=== PATIENT | male | born 1965 | race Caucasian/White ===

== ENCOUNTER 2016-07-04 08:48 | Inpatient (IN) ==
[2016-07-04] MEDS ORDERED: ALUM/MAG/SIMETH/LIDO VISC 1:1 30 ML BOTTLE PO STA (09:31)
[2016-07-04] MEDS ORDERED: METOPROLOL TARTRATE 5 MG/5 ML VIAL IV STA (09:31)
[2016-07-04] MEDS ORDERED: ONDANSETRON 4 MG/2 ML VIAL IV STA (09:31)
[2016-07-04] MEDS ORDERED: ASPIRIN 325 MG TABLET PO STA (09:31)
[2016-07-04] MEDS ORDERED: MORPHINE 2 MG/1 ML SYRINGE IV STA (09:31)
[2016-07-04] MEDS ORDERED: NITROGLYCERIN 2% OINT 1 INCH/GM PACK TOP STA (09:31)
[2016-07-04 09:41] LABS: Basophils % 0.7 % (0.0-0.8); Eosinophils # 0.2 10*3/uL (0.0-0.87); Eosinophils % 3.3 % (0.00-10.9); Hematocrit 49.8 VOL% (42.0-52.0); Hemoglobin 16.9 GM/DL (14.0-18.0); Immature Granulocytes % 0.2 %; Immature Granulocytes Absolute 0.01 #; Lymphocytes # 1.9 10*3/uL (1.4-4.0); Lymphocytes % 35.2 % (21.2-54.2); Mean Corpuscular HGB Conc 33.9 GM/DL (32-36); Mean Corpuscular Hemoglobin 33 PG (27-34); Mean Corpuscular Volume 97.5 FL (87-102); Mean Platelet Volume 9.7 FL (9.6-12.0); Monocytes # 0.5 10*3/uL (0.11-0.8); Monocytes % 8.5 % (1.7-12.7); Neutrophils # 2.9 10*3/uL (1.4-7.4); Neutrophils % 52.1 % (38.7-73.9); Platelet Count 171 T/CUMM (130-400); Red Blood Count 5.11 MC/CUMM (3.8-5.5); Red Cell Distribution Width 11.7 % (9.3-17.3); White Blood Count 5.5 T/CUMM (4-12)
--- NOTE | 2016-07-04 09:44 | Emergency Department Note ---
Benedict Larry Meredith, am scribing for, and in the presence of, Terry Mensah MD 09:26. Rodrick Larry Charles R, MD, personally performed the services described in this documentation, ascribed by Mattie Mcmullen in my presence, and it is both accurate and complete 944 . 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 At it's worst, his pain was an 8-9/10. He confirms associated lightheadedness and shortness of breath but denies any nausea or cough. Pt took 325mg ASA prior. His last stress test was over 2 years ago. He is a current everyday smoker. Onset (ago): hour(s) Severity scale (1-10): 8 Allergies/Adverse Reactions: Allergies Allergy/AdvReac Type Severity Reaction Status Date / Time No Known Allergies Allergy Unverified 07/04/16 08:51 Home Medications: Home Medications Medication Instructions Recorded Confirmed Type Omeprazole 20 mg PO QAM 07/04/16 07/04/16 History Review of System - Review of System 12 point system: reviewed and no additional remarkable complaints except as stated - Review of System Constitutional: Present: as per HPI, other (lightheadedness) Respiratory: Present: as per HPI, other (SOB). Absent: cough Cardiovascular: Present: as per HPI, chest pain Gastrointestinal: Present: as per HPI. Absent: nausea Musculoskeletal: Present: as per HPI, arm pain (left arm pain radiating from chest) Medical,Surgical,& Family Hx - Medical History Cardio: No history of: CHF - Surgical History Neurologic Surgeries: Patient denies: Neurologic Surgery - Family History Family History: Reports;: Family Heart Disease (father had an KS at 60) - Social History Smoking Status: Current every day smoker Frequency of Alcohol Use: None Type of Drug Use: None Exam Vital Signs: Vital Signs Temperature 98.5 F 07/04/16 08:51 Pulse Rate 70 07/04/16 08:51 Respiratory Rate 18 07/04/16 09:37 Blood Pressure 185/91 07/04/16 08:51 O2 Sat by Pulse Oximetry 96 07/04/16 08:51 - General General appearance: alert, in no apparent distress - Head Head exam: Present: atraumatic, normocephalic - Eye Eye exam: Present: normal appearance, PERRL, EOMI - ENT ENT exam: Present: mucous membranes moist. Absent: normal external ear exam - Neck Neck exam: Present: full ROM, trachea midline. Absent: tenderness, meningismus , lymphadenopathy, thyromegaly - Chest Chest inspection: Present: symmetric chest wall rise. Absent: tenderness, rash - Respiratory Respiratory exam: Present: normal lung sounds bilaterally. Absent: respiratory distress - Cardiovascular Cardiovascular exam: Present: regular rate, normal rhythm, normal heart sounds. Absent: murmur, rubs, gallop - Abdominal Exam Abdominal exam: Present: soft, normal bowel sounds. Absent: distention, tenderness - Extremities Exam Extremities exam: Present: full ROM, normal capillary refill. Absent: tenderness, pedal edema, calf tenderness - Back Exam Back exam: Present: full ROM. Absent: tenderness - Neurological Exam Neurological exam: Present: alert, oriented X3, CN II-XII intact. Absent: motor sensory deficit - Psychiatric Psychiatric exam: Present: normal affect, normal mood - Skin Skin exam: Present: warm, dry, intact, normal color Course - Consultations Consultation #1: Dr. Aurelio Somers will admit patient Time: 10:11 Results - Labs CBC & BMP: 07/04/16 09:16 07/04/16 09:16 Lab Results: I have reviewed the patients labs Labs: Laboratory Tests 07/04/16 07/04/16 09:16 09:16 WBC 5.5 RBC 5.11 Hgb 16.9 Hct 49.8 Plt Count 171 INR 1.0 PT Patient/Control Mix 11.0 D-Dimer, Quantitative <= 0.5 Laboratory Tests 07/04/16 07/04/16 09:16 09:16 Sodium 144 Potassium 3.7 Chloride 107 Carbon Dioxide 26 BUN 8 Creatinine 1.20 Glucose 127 H Calcium 8.4 L Troponin I < 0.015 Albumin/Globulin Ratio 1.0 L Critical Care Time Critical Care Time: Yes Total Critical Care Time: 60 Disposition Clinical Impression: Chest pain, Hypertensive urgency Case discussed with: patient, patient's family Disposition: Still a Patient Condition: Guarded Time of Disposition: 10:17
[2016-07-04 09:49] LABS: D-Dimer <= 0.5 MG/L FEU
[2016-07-04] MEDS ORDERED: MORPHINE 2 MG/1 ML SYRINGE ONE (09:50)
[2016-07-04] MEDS ORDERED: ONDANSETRON 4 MG/2 ML VIAL ONE (09:50)
[2016-07-04] MEDS ORDERED: ALUM/MAG/SIMETH/LIDO VISC 1:1 30 ML BOTTLE PO ONE (09:50)
[2016-07-04] MEDS ORDERED: METOPROLOL TARTRATE 5 MG/5 ML VIAL IV ONE (09:50)
[2016-07-04] MEDS ORDERED: NITROGLYCERIN 2% OINT 1 INCH/GM PACK TOP ONE (09:50)
[2016-07-04 09:57] LABS: Albumin 3.6 G/DL (3.4-5.0); Bilirubin,Total 0.4 MG/DL (0.2-1.0); Calcium 8.4 MG/DL (8.5-10.1); Osmolality,Calculated 285.8 MOS/KG (273-304); Potassium 3.7 MMOL/L (3.5-5.1); Total Protein 6.9 G/DL (6.4-8.3)
[2016-07-04] MEDS ORDERED: ENOXAPARIN 100 MG/ML SYRINGE SUBCUT STA (10:11)
[2016-07-04] MEDS ORDERED: hydrALAZINE 20 MG/1 ML VIAL IV STA ×3 (10:11→12:00)
[2016-07-04] MEDS ORDERED: hydrALAZINE 20 MG/1 ML VIAL ONE ×2 (10:12→12:02)
--- NOTE | 2016-07-04 10:29 | XRay Report ---
Portable chest Date: 07/04/2016 Clinical history: Chest pain Comparison: None Technique: Portable AP sitting chest Findings: The heart is normal in size. Minimal diffuse parenchymal findings especially in the lower lung zones. Stable mediastinum. Unremarkable mediastinum with degenerative changes. Impression: Minimal parenchymal findings which could related to scarring. It is difficult to exclude minimal atelectasis/edema/infiltration. PROCEDURE INTERPRETED AT [facility] DEPARTMENT OF RADIOLOGY Final Report Signed by: Dr. Ai Quinones
[2016-07-04] MEDS ORDERED: ENOXAPARIN 100 MG/ML SYRINGE SUBCUT ONE (12:21)
[2016-07-04] MEDS ORDERED: MORPHINE 2 MG/1 ML SYRINGE IV PRN (12:45)
[2016-07-04] MEDS ORDERED: ONDANSETRON 4 MG/2 ML VIAL IV PRN (12:45)
[2016-07-04] MEDS ORDERED: hydrALAZINE 20 MG/1 ML VIAL IV PRN (12:45)
--- NOTE | 2016-07-04 12:56 | EKG Report ---
Stationary ECG Study [facility] Test Date: 07/04/2016 12:53:14 PM Pat Name: ALEXANDRA LAMAS Department: Room: 295 Gender: M School Coordinator: ESTEFANI : 1965 Requested by: Terry King Order Number: [id number] Reading MD: RACHEL REED Intervals [place] Rate: 74 P: 52 [place]: 188 QRS: 68 QRSD: 93 T: 40 QT: 380 QTc: 408 Interpretive Statements SINUS RHYTHM Electronically Signed On 07-04-16 17:55:34 VIDEO SOFTWARE ENGINEER by RACHEL REED [email or web address]
[2016-07-04] MEDS: ACETAMINOPHEN 325 MG TABLET PO PRN ×2 (13:23→19:56)
[2016-07-04] MEDS: ENOXAPARIN 100 MG/ML SYRINGE SUBCUT SCH (13:26)
--- NOTE | 2016-07-04 13:39 | EKG Report ---
Stationary ECG Study [facility] Test Date: 07/04/2016 9:12:27 AM Pat Name: ALEXANDRA LAMAS Department: Room: 295 Gender: M Marker Assembler: : 1965 Requested by: Terry King Order Number: [id number] Reading MD: RACHEL REED Intervals [place] Rate: 64 P: 34 [place]: 193 QRS: 55 QRSD: 88 T: 21 QT: 388 QTc: 397 Interpretive Statements SINUS RHYTHM Electronically Signed On 07-04-16 17:54:10 FARMWORKER BULBS by RACHEL REED [id number]
[2016-07-04] MEDS: SODIUM CHLORIDE 0.9% 1,000 ML IV SCH (14:45)
--- NOTE | 2016-07-04 15:06 | EKG Report ---
Stationary ECG Study [facility] Test Date: 07/04/2016 3:05:24 PM Pat Name: ALEXANDRA LAMAS Department: Room: 295 Gender: M Golf Stud Riveter: ESTEFANI : 1965 Requested by: Terry King Order Number: [id number] Reading MD: RACHEL REED Intervals [place] Rate: 69 P: 44 [place]: 193 QRS: 63 QRSD: 81 T: 37 QT: 376 QTc: 395 Interpretive Statements SINUS RHYTHM NONSPECIFIC T-WAVE ABNORMALITY Electronically Signed On 07-04-16 17:55:46 SENIOR CONTRACT SPECIALIST by RACHEL REED [email or web address]
[2016-07-04] MEDS: NITROGLYCERIN 2% OINT 1 INCH/GM PACK TOP SCH ×2 (16:23→22:20)
--- NOTE | 2016-07-04 16:43 | Family Practice History&Phys ---
Assessment and Plan (1) Chest pain Status: Acute Assessment and plan: 07/04/2016: Patient has negative isoenzymes first 2 sets. Has been treated appropriately with medications for his elevated blood pressure. Will get cardiology to evaluate and appreciate their assistance in the Current Visit: Yes (2) Hypertensive urgency Status: Acute Assessment and plan: 07/04/2016: Stable at this time blood pressure is down and will continue treating as necessary Current Visit: Yes (3) GERD (gastroesophageal reflux disease) Status: Chronic Assessment and plan: 07/04/2016: Has no complaints of gastroesophageal reflux this time we will continue to monitor and keep on PPI Current Visit: Yes (4) Tobacco abuse Status: Chronic Assessment and plan: 07/04/2016: We will strongly encourage patient not to use tobacco anymore. May require some tobacco cessation medicines Current Visit: Yes History of Present Illness Chief complaint: Chest pain History of present illness: Mr. Ibarra is a 50 year old male Known to me in the clinic. Is generally very healthy and taking good care of himself. Does not have any known coronary artery disease. Apparently did have a treadmill some 11 or 12 years ago which was reportedly normal. Came to the emergency room this morning with chest discomfort along the anterior axillary line lateral chest wall. He did not have any shan midsternal chest pain. There is a history of coronary artery disease in his family (date he had an VT in his 60s). Otherwise negative. Does have a history of smoking but he does not use alcohol. Patient states that this morning at approximately 8:00 he was at work on the computer. There has been a lot of stress at work due to lack of employees. He started developing some chest pain while sitting at the computer. He denied any palpitations. With the pain he did not have any nausea or vomiting but as noted above he did have some diaphoresis. Describes the pain approximately 7-8 out of 10. After standing up he states he did get dizzy. When he was brought to the emergency room it was noted that he had an extremely elevated blood pressure of around 200/120. He was given medications to reduce this. First 2 sets of cardiac causes have been negative. His total chemistry was normal otherwise. D-dimer was negative and CBC was normal. He denies any recent illness. In the emergency room nitroglycerin did not relieve his pain. At this time is doing well his blood pressure is back to normal. Is not having any further pain and resting well. He is somewhat anxious. May consider putting him on an antidepressant for this. Patient has already been admitted. We are getting cardiology to evaluate him due to his risk factors include including family history and high blood pressure. Appreciate their assistance on this case Home Medications Medication Instructions Recorded Confirmed Type Omeprazole 20 mg PO QAM 07/04/16 07/04/16 History Allergies Allergy/AdvReac Type Severity Reaction Status Date / Time No Known Allergies Allergy Unverified 07/04/16 08:51 12 point system: reviewed and no additional remarkable complaints except as stated (Except for that mentioned in the history and physical) Medical,Surgical,& Family Hx - Medical History Cardio: No history of: CHF - Surgical History Neurologic Surgeries: Patient denies: Neurologic Surgery - Family History Family History: Reports;: Family Heart Disease (father had an VT at 60) - Social History Smoking Status: Current every day smoker Frequency of Alcohol Use: None Type of Drug Use: None Exam - Constitutional Vitals: Period Temp Pulse Resp BP Sys/Romeo Pulse Ox Last 24 Hr 97.4 F-98.5 F 65-77 18-18 139-200/75-122 94-98 Exam: Generally well-developed male is alert and oriented very cognitive answers all questions appropriately. Good body habitus. HEENT pupils equal reactive to light extraocular movements are intact neck is supple trachea midline. There is a questionable bruit on the right side plan on doing a carotid duplex Cardiovascular rate is regular no gallops or rubs appreciated at this time EKG reveals what appears to be sinus rhythm without any ST findings. Lungs are clear bilaterally Abdomen soft nondistended nontender positive bowel sounds Extremities no clubbing cyanosis edema Neurologically fully intact no lateralizing or motor sensory deficit Results - Labs CBC & BMP: 07/04/16 09:16 07/04/16 09:16
--- NOTE | 2016-07-04 17:06 | Cardiology Consult Note ---
Marcio Larry Rachel, RN, am scribing for, and in the presence of, Vamsi Rojas MD 17:05. Assessment and Plan - Time spent with patient Time spent with patient: Greater than 30 minutes (1) GERD (gastroesophageal reflux disease) Status: Chronic Current Visit: Yes (2) Tobacco abuse Status: Chronic Current Visit: Yes (3) Family history of heart disease Status: Chronic Current Visit: Yes (4) Dizziness Status: Acute Current Visit: Yes (5) Chest pain Status: Acute Current Visit: Yes (6) Hypertensive urgency Status: Acute Current Visit: Yes History of Present Illness - Data of Consult Patient: new to practice Consult date: 07/04/16 Requesting Physician: Aurelio Somers - Consult Narrative Reason for consult: Chest pain History of present illness: Mr. Ibarra is a 50 year old male without history of known coronary artery disease, not routinely followed by cardiology. He presented to the ER this morning with complaints of chest discomfort. He has cardiac risk factors significant for family history of coronary artery disease (dad had TX in his 60s ), hypertension (this seems to be a new diagnosis, patient does not take medications at home for this), sedentary lifestyle, obesity and current every day smoker. He has a past medical history of GERD. He denies any significant cardiac surgical history. He tells me that he had a stress test 15-18 years ago that was negative. Patient has never underwent a cardiac catheterization. Patient was in his usual state of health until this morning at work when he began to experience severe nonradiating left-sided chest pain. He tells me that this started approximately 30 minutes after he ate breakfast while sitting in his chair. He describes his chest pain as pressure and rates it an 8 on a scale of 1 out of 10. Diaphoresis and dizziness was also associated with this pain. He denies shortness of breath, nausea, vomiting and palpitations/heart racing. This chest pain worsened when he stood up from his chair. He took an aspirin and he tells me that this helped his pain. Mr. Craft was extremely concerned so he reported to the ER for further evaluation. His chest pain was constant until he arrived in the ER and received morphine. Nitroglycerin did not alleviate his pain. Upon arrival to the ER, his blood pressure was noted to be extremely elevated. Blood pressure of 185/91 and 200/122 is noted. Patient was admitted under Dr. Somers's service and housed on telemetry for close observation. Cardiology has been consulted to evaluate patient's chest pain. Of note, patient admits that this is not the first episode of chest discomfort that he has experienced. He tells me that he has experienced several less severe cases of chest pain. He tells me that these sometimes are experienced with exertion and walking and other times with rest. He denies significant exercise intolerance and dyspnea on exertion. Patient denies fever, chills, cough, nausea, vomiting, dyspnea, abdominal pain, melena, orthopnea, PND and lower extremity swelling. Patient was seen and examined on telemetry. He is currently resting in bed in no acute distress. Not requiring any oxygen. He is currently chest pain-free. Troponin has been negative 2. BNP is noted to be 9. EKG does not reveal any acute findings. No previous EKG noted for comparison. D-dimer is less than 0.5, making PE unlikely. Chest x-ray reveals minimal parenchymal findings which could be related to scarring. It is difficult to exclude minimal atelectasis/edema/infiltration. Telemetry abscess been reviewed. Patient is currently in sinus rhythm with heart rates in the 80s without any overt arrhythmias or ectopy noted. We will continue to monitor patient on telemetry. Review of labs--white blood cell count 5.5, H&H 16.9 and 49.8, platelet count 171, INR 1.0, d-dimer less than 0.5, sodium 144, chloride 107, potassium 3.7, magnesium 2.0, troponin negative 2, BNP 9, creatinine 1.2 with a BUN of 8. Impression: Chest pain GERD Uncontrolled hypertension, new diagnosis Current every day smoker Plan: Continue to monitor EKG and troponin Monitor patient on telemetry Hemoglobin A1c Will review lipid panel in the morning Echocardiogram Cardiology addendum. Patient examined, chart reviewed and discussed with nurse Arianne Buckley RN. 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 He took a friend's sublingual nitro which did not help. He got up from the table and then became nauseated and lightheaded. Blood pressure was high around 185/90 in the ER. Currently the blood pressure is 130/76 in the left arm by me. He does smoke one half pack of cigarettes daily and dip snuff one half can per day. No history of hypertension. No history of diabetes. No history of stroke. Patient reports that cholesterol has always been good. 5 feet 10 inches tall, 190 pounds. His reports that he does snore heavily and has erratic breathing pattern at night. He is chronically tired. He has never been tested for sleep apnea. His father had a history of TX and CABG and stents and from cirrhosis age 74. Mother is 74 and has hypertension. Exam is normal. EKG normal. Troponin negative 2 Plan Exercise Cardiolite stress test in a.m. Recheck CPK troponin and EKG CC: Aurelio Somers, DO - Home Medications and Allergies Home Medications: Home Medications Medication Instructions Recorded Confirmed Type Omeprazole 20 mg PO QAM 07/04/16 07/04/16 History Allergies/Adverse Reactions: Allergies Allergy/AdvReac Type Severity Reaction Status Date / Time No Known Allergies Allergy Unverified 07/04/16 08:51 - Constitutional Constitutional: Absent: chills, fatigue, fever(s), frequent falls, headache(s), malaise, weakness, weight gain, weight loss - Cardiovascular Cardiovascular: Present: chest pain at rest, chest pain with activity, diaphoresis, lightheadedness. Absent: claudication, dyspnea, dyspnea on exertion, edema, radiating jaw, neck or arm pain, orthopnea, palpitations, PND - Respiratory Respiratory: Absent: cough, dyspnea, hemoptysis, dyspnea on exertion, wheezing, snoring, pain on inspiration, change in phlegm color - Gastrointestinal Gastrointestinal: Absent: abdominal pain, change in bowel habits, coffee ground emesis, diarrhea, hematemesis, hematochezia, loose stools, melena, nausea, vomiting - Neurological Neurological: Present: dizziness. Absent: abnormal gait, abnormal speech, behavioral changes, confusion, frequent falls, headache(s), syncope Medical,Surgical,& Family Hx - Medical History Cardio: No history of: Cardiac Dysrhythmia, CAD, TX, Valvular Heart Disease Endocrine: No history of: Diabetes Mellitus (NIDDM), Dyslipidemia Gastrointestinal: History of: GERD - Surgical History Neurologic Surgeries: Patient denies: Neurologic Surgery - Family History Family History: Reports;: Family Heart Disease (father had an TX at 60) - Social History Smoking Status: Current every day smoker Frequency of Alcohol Use: None Type of Drug Use: None Physical Examination Vital Signs Temp Pulse Resp BP Pulse Ox 98.5 F 70 20 185/91 96 07/04/16 08:51 07/04/16 08:51 07/04/16 08:51 07/04/16 08:51 07/04/16 08:51 General: Present: Appears Well, No Apparent Distress Neck: Present: Supple Neck, Midline Trachea, No JVD/HJR, No Masses, No Bruit, No Lymphadenopathy, No Thyromegaly Cardiac: Present: Reg Rate and Rhythm, Regular Rate, Regular Rhythm, S1/S2, No Murmur. Absent: Gallop, Tachycardia, Bradycardia Lungs: Present: Normal Exam, Clear Ascult./Percussion, Normal Breath Sounds, No Wheeze, Rales, Rhonchi. Absent: Oxygen Abdomen: Present: Soft, Active Bowel Sounds, No Masses, No Pulsations/Bruits, Non-Tender. Absent: Tender, Firm, Distended Skin: Present: Clear. Absent: Rash, Suspicious Lesions, Ulceration Gait: Present: Normal Gait Extremities: Present: Normal Gait, No Clubbing, No Cyanosis, No Edema, Normal Upper Extr. Pulses, Normal Lower Extr. Pulses Result/EKG - Labs CBC & BMP: 07/04/16 09:16 07/04/16 09:16 Lab Results: I have reviewed the past 24 hour labs Labs: Laboratory Results - last 24 hr 07/04/16 13:08 Troponin I < 0.015 - EKG EKG results: interpreted by me, sinus rhythm I, Vamsi Rojas MD, personally performed the services described in this documentation, ascribed by Arianne Buckley RN in my presence, and it is both accurate and complete .
--- NOTE | 2016-07-04 17:52 | ECHO Report ---
Erlin Ibarra Exam Date: 07/04/2016 15:40 Referring Physician: Technologist: Evelyn Mac RDCS Age: 50 Ht (in): Wt (lb): Gender: M Exam Location: [facility] Echo Indications: Chest pain, unspecified BP: / HR: Rhythm: Sinus Technical Quality: Good IMPRESSIONS Normal left ventricular cavity size. Left ventricular ejection fraction is estimated at 65 %. The right ventricle is normal in size and function. The right atrium is normal in size. The left atrium is normal in size. Morphologically normal mitral valve. No mitral valve regurgitation. The aortic valve is trileaflet and has normal motion. No aortic valve regurgitation. Mild tricuspid valve regurgitation. PAP35 mmHG. Normal pericardium without effusion. Normal ascending aorta dimension. MEASUREMENTS (Male / Female) Normal Values 2D ECHO LV Diastolic Diameter PLAX 3.7 cm 4.2 - 5.9 / 3.9 - 5.3 cm LV Systolic Diameter PLAX 2.4 cm LV Fractional Shortening PLAX 35.6 % IVS Diastolic Thickness 0.8 cm 0.6 - 1.0 / 0.6 - 0.9 cm LVPW Diastolic Thickness 1.0 cm 0.6 - 1.0 / 0.6 - 0.9 cm RV Internal Dim ED PLAX 2.6 cm Aortic Root Diameter 3.2 cm LA Systolic Diameter LX 3.9 cm 3.0 - 4.0 / 2.7 - 3.8 cm DOPPLER TR Peak Velocity 246.0 cm/s TR Peak Gradient 24.2 mmHg FINDINGS Left Ventricle Normal left ventricular cavity size. Normal left ventricular wall thickness. Left ventricular ejection fraction is estimated at 65 %. Right Ventricle The right ventricle is normal in size and function. Right Atrium The right atrium is normal in size. Left Atrium The left atrium is normal in size. Mitral Valve Morphologically normal mitral valve. No mitral valve regurgitation. Aortic Valve The aortic valve is trileaflet and has normal motion. No aortic valve regurgitation. Tricuspid Valve Morphologically normal tricuspid valve. Mild tricuspid valve regurgitation. PAP35 mmHG. Pulmonic Valve Pulmonic valve not well visualized. Pericardium Normal pericardium without effusion. Aorta Normal ascending aorta dimension. Julius Crystal (Electronically Signed) Final Date: 04 July 2016 17:51
[2016-07-04 18:15] LABS: Troponin I Only < 0.015 NG/ML (0.00-0.045)
[2016-07-04] MEDS: DOCUSATE SODIUM 100 MG CAPSULE PO SCH (22:20)
[2016-07-05] MEDS: ENOXAPARIN 100 MG/ML SYRINGE SUBCUT SCH ×2 (00:45→15:35)
[2016-07-05 01:45] LABS: Basophils # 0.1 10*3/uL (0.0-0.2); Basophils % 0.6 % (0.0-0.8); Eosinophils # 0.2 10*3/uL (0.0-0.87); Eosinophils % 2.2 % (0.00-10.9); Hematocrit 47.4 VOL% (42.0-52.0); Hemoglobin 15.9 GM/DL (14.0-18.0); Immature Granulocytes % 0.2 %; Immature Granulocytes Absolute 0.02 #; Lymphocytes # 2.9 10*3/uL (1.4-4.0); Mean Corpuscular HGB Conc 33.5 GM/DL (32-36); Mean Corpuscular Hemoglobin 33 PG (27-34); Mean Corpuscular Volume 98.1 FL (87-102); Mean Platelet Volume 9.4 FL (9.6-12.0); Monocytes # 0.7 10*3/uL (0.11-0.8); Monocytes % 7.6 % (1.7-12.7); Neutrophils % 56.4 % (38.7-73.9); Platelet Count 167 T/CUMM (130-400); Red Blood Count 4.83 MC/CUMM (3.8-5.5); Red Cell Distribution Width 11.8 % (9.3-17.3); White Blood Count 8.9 T/CUMM (4-12)
[2016-07-05 02:26] LABS: Albumin 3.5 G/DL (3.4-5.0); Bilirubin,Total 0.6 MG/DL (0.2-1.0); Calcium 8.5 MG/DL (8.5-10.1); Magnesium 2.3 MG/DL (1.8-2.4); Osmolality,Calculated 286.7 MOS/KG (273-304); Potassium 4.2 MMOL/L (3.5-5.1); Risk Ratio 4.66; Total Protein 5.9 G/DL (6.4-8.3); VLDL CHOLESTEROL 31.6 MG/DL
[2016-07-05 02:29] LABS: Troponin I Only < 0.015 NG/ML (0.00-0.045)
[2016-07-05] MEDS: NITROGLYCERIN 2% OINT 1 INCH/GM PACK TOP SCH ×3 (05:02→18:28)
[2016-07-05 06:31] LABS: Apearance,Urine CLEAR (Clear); Bilirubin,Urine Negative (Negative); Blood, Urine Negative (Negative); Glucose,Urine (UA) Negative (Negative); Ketones,Urine Negative (Negative); Mucus,Urine Occasional /LPF (Occasional); Nitrite,Urine Negative (Negative); Protein,Urine Negative; RBC,Urine 1 /HPF (0-4); Squamous Epithelial Cell,Urine Occasional /HPF (0-10); Urine Color Yellow (Yellow); Urine Specific Gravity 1.017 (1.001-1.035); Urine Urobilinogen < 2.0 EU/DL (0.2-1.0); WBC,Urine <1 /HPF (0-6)
--- NOTE | 2016-07-05 07:58 | EKG Report ---
Stationary ECG Study [facility] Test Date: 07/04/2016 7:56:14 PM Pat Name: ALEXANDRA LAMAS Department: Room: 295 Gender: M Ticketing Clerk: : 1965 Requested by: Aurelio Carlin Order Number: [id number] Reading MD: ADRIANA AVITIA Intervals [place] Rate: 66 P: 22 [place]: 188 QRS: 39 QRSD: 89 T: 6 QT: 381 QTc: 395 Interpretive Statements SINUS RHYTHM@66BPM MILD NST Electronically Signed On 07-05-16 14:06:59 MICROSOFT WINDOWS ENGINEER by ADRIANA AVITIA [email or web address]
--- NOTE | 2016-07-05 07:58 | EKG Report ---
Stationary ECG Study [facility] Test Date: 07/04/2016 8:55:58 AM Pat Name: ALEXANDRA LAMAS Department: Room: 295 Gender: M Multimedia Assistant: : 1965 Requested by: Aurelio Carlin Order Number: [id number] Jordyn MD: ADRIANA AVITIA Intervals [place] Rate: 71 P: 35 [place]: 192 QRS: 48 QRSD: 87 T: 4 QT: 392 QTc: 414 Interpretive Statements SINUS RHYTHM@71BPM Lead V1 and V2 are missing Otherwise WNL Electronically Signed On 07-05-16 13:44:20 MACHINE OR MACHINERY MECHANIC by ADRIANA AVITIA [id number]
[2016-07-05] MEDS ORDERED: REGADENOSON 0.4 MG/5 ML SYRINGE IV ONE (08:56)
[2016-07-05] MEDS ORDERED: ASPIRIN EC 325 MG TABLET PO SCH (09:00)
--- NOTE | 2016-07-05 09:06 | Cardiology Progress Note ---
Assessment and Plan - Time spent with patient Time spent with patient: Greater than 30 minutes (1) Chest pain Status: Acute Assessment and plan: SEE PLAN OF CARE LISTED BELOW Current Visit: Yes (2) Hypertensive urgency Status: Acute Assessment and plan: SEE PLAN OF CARE LISTED BELOW Current Visit: Yes (3) GERD (gastroesophageal reflux disease) Status: Chronic Assessment and plan: SEE PLAN OF CARE LISTED BELOW Current Visit: Yes (4) Tobacco abuse Status: Chronic Assessment and plan: SEE PLAN OF CARE LISTED BELOW Current Visit: Yes Cardiology - PN: Subj Interval history: Mr. Craft, 50-year-old male, not previously followed by cardiology , presented to the emergency department at [facility] July 04, 2016 with complaints of chest pain. He has numerous risk factors including significant family history of coronary artery disease, hypertension, sedentary lifestyle, obesity and tobaccoism. Upon arrival, blood pressure was uncontrolled noted to be 185/90. This came under better control with introduction of oral antihypertensives. His cardiac biomarkers are negative. EKG does not reflect an acute event. Echocardiogram reveals EF 60% without significant valvular abnormality. He is NPO for stress testing this morning. Overnight, he has had no chest discomfort. Fasting lipid profile this morning reveals the following: Total cholesterol 135 , LDL 85, HDL 29. Triglycerides 158. Other labs are unremarkable ASSESSMENT/PLAN: 1. CHEST PAIN -cardiac biomarkers are negative. N.p.o. for stress testing this morning. Further recommendations will unfold as we receive results from nuclear stress test. 2. HYPERTENSION -this morning, I will introduce low-dose beta blockade after stress testing 3. TOBACCOISM -greater than 5 minutes was spent today discussing the merits of tobacco cessation. 4. GERD - continue PPI Exam (Progress Note) - Constitutional Vitals: Period Temp Pulse Resp BP Sys/Romeo Pulse Ox Last 24 Hr 97.4 F-98.5 F 61-77 16-20 132-200/75-122 94-98 Exam: General: [Appears well with no apparent distress.] [Pleasant and cooperative. ] [Appears comfortable.] HEENT: [PERRL, normocephalic, atraumatic. Mucous membranes moist. No jaundice noted. Conjunctiva moist and clear, sclerae anicteric] Neck: No JVD/HJR, no thyromegaly or lymphadenopathy noted. No carotid bruit appreciated Cardiac: [Regular rate and rhythm.] [No murmur rub or gallop.] Lungs: [Clear to auscultation without accessory muscle use to assist the respiratory pattern.] Not requiring oxygen Abdomen: Soft, bowel sounds normoactive. Nontender and nondistended. No abdominal bruit or thrill noted. No masses noted. Musculoskeletal: No fluid collection. Decreased range of motion is noted. Extremities: No clubbing, cyanosis noted. [ No edema noted.] Upper extremity pulses 2+. Lower extremity pulses 2+. Capillary refill less than 3 seconds. Skin: No unusual lesions or rashes. No skin breakdown appreciated. Neuro: Awake, alert and oriented 3. Moves all extremities well without hemiparesis or paralysis. No essential tremor is appreciated. Result/EKG - Labs CBC & BMP: 07/05/16 01:38 07/05/16 01:38 Lab Results: I have reviewed the past 24 hour labs Labs: Laboratory Results - last 24 hr 07/04/16 07/04/16 07/04/16 13:08 15:19 15:19 WBC RBC Hgb Hct MCV MCH MCHC RDW Plt Count MPV Neut % (Auto) Lymph % (Auto) [place] % (Auto) Eos % (Auto) Baso % (Auto) Neut # (Auto) Lymph # (Auto) [place] # (Auto) Eos # (Auto) Baso # (Auto) Immature Gran % Nucleated RBC % Immature Gran # Nucleated RBCs # Sodium Potassium Chloride Carbon Dioxide Anion Gap BUN Creatinine GFR Calculation BUN/Creatinine Ratio Glucose Hemoglobin A1c 5.4 Calculated Osmolality Calcium Magnesium Total Bilirubin AST ALT Alkaline Phosphatase Total Creatine Kinase CK-MB (CK-2) Troponin I < 0.015 < 0.015 B-Natriuretic Peptide Total Protein Albumin Globulin Albumin/Globulin Ratio Triglycerides Cholesterol LDL Cholesterol VLDL Cholesterol HDL Cholesterol Heart Disease Risk Ratio Urine Color Urine Appearance Urine pH Ur Specific [place] Urine Protein Urine Glucose (UA) Urine Ketones Urine Blood Urine Nitrate Urine Bilirubin Urine Urobilinogen Urine Leukocytes Urine RBC Urine WBC Ur Squamous Epith Cells Urine Mucus Ur Culture Indicated? 07/04/16 07/05/16 07/05/16 17:24 01:38 01:38 WBC 8.9 D RBC 4.83 Hgb 15.9 Hct 47.4 MCV 98.1 MCH 33 MCHC 33.5 RDW 11.8 Plt Count 167 MPV 9.4 L Neut % (Auto) 56.4 Lymph % (Auto) 33.0 [place] % (Auto) 7.6 Eos % (Auto) 2.2 Baso % (Auto) 0.6 Neut # (Auto) 5.0 Lymph # (Auto) 2.9 [place] # (Auto) 0.7 Eos # (Auto) 0.2 Baso # (Auto) 0.1 Immature Gran % 0.2 Nucleated RBC % 0.0 Immature Gran # 0.02 Nucleated RBCs # 0.00 Sodium 145 Potassium 4.2 Chloride 110 H Carbon Dioxide 26 Anion Gap 13.2 BUN 10 Creatinine 1.00 GFR Calculation 99 BUN/Creatinine Ratio 10.00 Glucose 91 Hemoglobin A1c Calculated Osmolality 286.7 Calcium 8.5 Magnesium 2.3 Total Bilirubin 0.60 AST 25 ALT 34 Alkaline Phosphatase 79 Total Creatine Kinase 155 CK-MB (CK-2) 1.6 Troponin I < 0.015 B-Natriuretic Peptide Total Protein 5.9 L Albumin 3.5 Globulin 2.4 Albumin/Globulin Ratio 1.4 Triglycerides 158 H Cholesterol 135 LDL Cholesterol 85.0 VLDL Cholesterol 31.6 HDL Cholesterol 29 L Heart Disease Risk Ratio 4.66 Urine Color Urine Appearance Urine pH Ur Specific [place] Urine Protein Urine Glucose (UA) Urine Ketones Urine Blood Urine Nitrate Urine Bilirubin Urine Urobilinogen Urine Leukocytes Urine RBC Urine WBC Ur Squamous Epith Cells Urine Mucus Ur Culture Indicated? 07/05/16 07/05/16 07/05/16 01:38 01:38 06:20 WBC RBC Hgb Hct MCV MCH MCHC RDW Plt Count MPV Neut % (Auto) Lymph % (Auto) [place] % (Auto) Eos % (Auto) Baso % (Auto) Neut # (Auto) Lymph # (Auto) [place] # (Auto) Eos # (Auto) Baso # (Auto) Immature Gran % Nucleated RBC % Immature Gran # Nucleated RBCs # Sodium Potassium Chloride Carbon Dioxide Anion Gap BUN Creatinine GFR Calculation BUN/Creatinine Ratio Glucose Hemoglobin A1c Calculated Osmolality Calcium Magnesium Total Bilirubin AST ALT Alkaline Phosphatase Total Creatine Kinase 117 D CK-MB (CK-2) 1.4 Troponin I < 0.015 B-Natriuretic Peptide 29 Total Protein Albumin Globulin Albumin/Globulin Ratio Triglycerides Cholesterol LDL Cholesterol VLDL Cholesterol HDL Cholesterol Heart Disease Risk Ratio Urine Color Yellow Urine Appearance Clear Urine pH 5.0 Ur Specific [place] 1.017 Urine Protein Negative Urine Glucose (UA) Negative Urine Ketones Negative Urine Blood Negative Urine Nitrate Negative Urine Bilirubin Negative Urine Urobilinogen < 2.0 H Urine Leukocytes Negative Urine RBC 1 Urine WBC <1 Ur Squamous Epith Cells Occasional Urine Mucus Occasional Ur Culture Indicated? Not indicated - Diagnostic Findings Procedure: Chest x-ray: report reviewed by me - EKG EKG results: interpreted by me EKG shows: sinus rhythm
--- NOTE | 2016-07-05 09:10 | Event Note ---
Underwent treadmill portion of stress test. Poor exercise tolerance noted. Upon reaching approximately 2 minutes on the treadmill, patient complained of extreme shortness of breath and fatigue, dizziness. For this reason, transitioned to Lexiscan protocol. After receiving Cardiolite and Lexiscan injection, patient complained of chest pain similar to the symptoms which brought him to the emergency department. The chest discomfort lasted approximately 1 minute. There were no EKG or ST changes noted. No arrhythmia noted. He is now being transitioned to nuclear medicine for final scan. playback to read, interpreted and advise. I will keep him n.p.o. until stress testing results returned.
--- NOTE | 2016-07-05 09:19 | XRay Report ---
XR chest 2V Indication: Shortness of breath. Comparison: Chest x-ray 07/04/2016. Technique: PA and lateral chest x-ray was performed. Findings: The heart size is within normal limits. The mediastinal contour demonstrates no significant abnormality. The lungs are clear. Bones and soft tissues demonstrate no acute abnormality. Impression: 1. No active cardiopulmonary disease. 07/05/2016 9:16 AM PROCEDURE INTERPRETED AT [facility] DEPARTMENT OF RADIOLOGY Final Report Signed by: Dr. Paco Bearden
[2016-07-05] MEDS: PANTOPRAZOLE 40 MG VIAL IV SCH (09:22)
[2016-07-05] MEDS: SODIUM CHLORIDE 0.9% 1,000 ML IV SCH (09:22)
[2016-07-05] MEDS: DOCUSATE SODIUM 100 MG CAPSULE PO SCH ×2 (09:23→21:48)
[2016-07-05 09:41] LABS: Troponin I Only < 0.015 NG/ML (0.00-0.045)
[2016-07-05] MEDS ORDERED: diphenhydrAMINE CAP 25 MG CAPSULE PO ONE (11:31)
[2016-07-05] MEDS ORDERED: MAGNESIUM SULF RIDER 2 GM in PREMIX 1 EACH IV PRN ×2 (11:31→11:44)
[2016-07-05] MEDS ORDERED: DIAZEPAM 5 MG TABLET PO ONE (11:31)
[2016-07-05] MEDS ORDERED: POTASSIUM CHLORIDE RIDER 10 MEQ in PREMIX 1 EACH IV PRN ×2 (11:31→11:44)
--- NOTE | 2016-07-05 11:44 | History and Physical Update ---
Sedation H&P Update - History and Physical H&P was reviewed, the patient examined and there: are no changes in the patients condition since last H&P was completed. - Dictation Physical: refer to scanned H&P - Physical Exam Mental Status: alert and oriented Heart: regular rate and rhythm Lung: clear to auscultation Abdomen: within normal limits Vitals: within normal limits - Sedation ASA Class: II Airway Assessment: Class II: Soft palate, uvula, fauces visible
[2016-07-05] MEDS ORDERED: LIDOCAINE 1% 20 ML VIAL ONE (12:02)
[2016-07-05] MEDS ORDERED: HEPARIN/NACL 0.9% 2 UNITS/ML 1,000 ML IV ONE (12:02)
[2016-07-05] MEDS ORDERED: HYDROmorphone 2 MG/1 ML VIAL ONE (12:23)
[2016-07-05] MEDS ORDERED: MIDAZOLAM 2 MG/2 ML VIAL ONE (12:23)
--- NOTE | 2016-07-05 13:04 | Cardiac Catheterization ---
Date of Procedure:: 07/05/16 Pre-op Diagnosis: Chest pain abnormal stress test Post-op diagnosis: other (Noncardiac chest pain patent coronaries) Procedure: Cardiac catheterization procedure note #1 left heart catheterization #2 selective coronary angiography #3 left ventriculography Omnipaque was used for the procedure Description of procedure Following sterile preparation draping of the right groin, local anesthesia was achieved by infiltration with 1% Xylocaine. Using a Cook needle the right femoral artery was cannulated and a #6 sheath was inserted. A 6 Georgian pigtail catheter was advanced retrograde across aortic valve into the left ventricle and the end-diastolic pressure was recorded. Left ventriculography was performed in the MONTES projection using 24 cc of contrast material. A pullback recording made across aortic valve. The pigtail catheter change for a 6 Georgian left Gladys catheter and left coronary angiography was performed in MONTES and ITALIAN projections. The catheter change for a 6 Georgian right Amplatz catheter and right coronary angiography was performed in the ITALIAN projection only. The catheter and sheath were then removed and the femoral arteriotomy site was sealed percutaneously minx closure device with prompt cessation of bleeding and prompt return of the femoral and foot pulses. No complications ensued. The patient was transported back to the telemetry floor in stable condition Hemodynamic data Aortic pressure 162/85 mean 109 Left ventricle 162/14 Selective coronary angiography The circulation is left dominant. The left main trunk is widely patent and trifurcates. The LAD is a large vessel wraps around the apex. It has mild proximal irregularities only. 3 small diagonal branches are patent. The intermediate branch is patent. The dominant circumflex is widely patent. The right coronary small nondominant vessel and is patent. Left ventriculography Ejection fraction 60%. No wall motion abnormality. No mitral regurgitation. Conclusions #1 LVEDP 14 #2 ejection fraction 60% with no wall motion abnormality #3 no mitral regurgitation #4 no aortic valve gradient #5 left dominant circulation #6 body patent coronary arteries Disposition The patient has widely patent coronary arteries and normal ventricular function , ejection fraction 60%. Noncardiac chest pain. Cine pictures were reviewed with the patient and with his Alessia. Continued medical therapy and risk factor modification recommended. Implants: No implants Anesthesia: moderate conscious sedation Surgeon / Physician: Vamsi Rojas Estimated blood loss: minimal Specimens: none sent Condition: stable Disposition: floor - Medications / Follow-up
--- NOTE | 2016-07-05 13:13 | Cardiology Progress Note ---
Assessment and Plan (1) GERD (gastroesophageal reflux disease) Status: Chronic Current Visit: Yes (2) Tobacco abuse Status: Chronic Current Visit: Yes (3) Family history of heart disease Status: Chronic Current Visit: Yes (4) Dizziness Status: Acute Current Visit: Yes (5) Chest pain Status: Acute Current Visit: Yes (6) Hypertensive urgency Status: Acute Current Visit: Yes Cardiology - PN: Subj Interval history: Cardiology note. Patient had widely patent coronary arteries with ejection fraction 60% by today' s cath. Noncardiac chest pain. Cine pictures were reviewed with the patient and with his Alessia. They have been reassured. Continued medical therapy and risk factor modification recommended. Right groin soft and dry. No bruit or hematoma. Distal pulses 2+ Plan Routine groin precautions discussed. Normal saline hydration. Risk factor modification. Cardiac rehab to see. Home in a.m. Exam (Progress Note) - Constitutional Vitals: Period Temp Pulse Resp BP Sys/Romeo Pulse Ox Last 24 Hr 97.8 F-98.5 F 61-75 16-20 132-148/75-88 96-98 Result/EKG - Labs CBC & BMP: 07/05/16 01:38 07/05/16 01:38 Labs: Laboratory Results - last 24 hr 07/04/16 07/04/16 07/04/16 13:08 15:19 15:19 WBC RBC Hgb Hct MCV MCH MCHC RDW Plt Count MPV Neut % (Auto) Lymph % (Auto) Emmet % (Auto) Eos % (Auto) Baso % (Auto) Neut # (Auto) Lymph # (Auto) Emmet # (Auto) Eos # (Auto) Baso # (Auto) Immature Gran % Nucleated RBC % Immature Gran # Nucleated RBCs # Sodium Potassium Chloride Carbon Dioxide Anion Gap BUN Creatinine GFR Calculation BUN/Creatinine Ratio Glucose Hemoglobin A1c 5.4 Calculated Osmolality Calcium Magnesium Total Bilirubin AST ALT Alkaline Phosphatase Total Creatine Kinase CK-MB (CK-2) Troponin I < 0.015 < 0.015 B-Natriuretic Peptide Total Protein Albumin Globulin Albumin/Globulin Ratio Triglycerides Cholesterol LDL Cholesterol VLDL Cholesterol HDL Cholesterol Heart Disease Risk Ratio Urine Color Urine Appearance Urine pH Ur Specific [place] Urine Protein Urine Glucose (UA) Urine Ketones Urine Blood Urine Nitrate Urine Bilirubin Urine Urobilinogen Urine Leukocytes Urine RBC Urine WBC Ur Squamous Epith Cells Urine Mucus Ur Culture Indicated? 0307/05/16 07/05/16 17:24 01:38 01:38 WBC 8.9 D RBC 4.83 Hgb 15.9 Hct 47.4 MCV 98.1 MCH 33 MCHC 33.5 RDW 11.8 Plt Count 167 MPV 9.4 L Neut % (Auto) 56.4 Lymph % (Auto) 33.0 Emmet % (Auto) 7.6 Eos % (Auto) 2.2 Baso % (Auto) 0.6 Neut # (Auto) 5.0 Lymph # (Auto) 2.9 Emmet # (Auto) 0.7 Eos # (Auto) 0.2 Baso # (Auto) 0.1 Immature Gran % 0.2 Nucleated RBC % 0.0 Immature Gran # 0.02 Nucleated RBCs # 0.00 Sodium 145 Potassium 4.2 Chloride 110 H Carbon Dioxide 26 Anion Gap 13.2 BUN 10 Creatinine 1.00 GFR Calculation 99 BUN/Creatinine Ratio 10.00 Glucose 91 Hemoglobin A1c Calculated Osmolality 286.7 Calcium 8.5 Magnesium 2.3 Total Bilirubin 0.60 AST 25 ALT 34 Alkaline Phosphatase 79 Total Creatine Kinase 155 CK-MB (CK-2) 1.6 Troponin I < 0.015 B-Natriuretic Peptide Total Protein 5.9 L Albumin 3.5 Globulin 2.4 Albumin/Globulin Ratio 1.4 Triglycerides 158 H Cholesterol 135 LDL Cholesterol 85.0 VLDL Cholesterol 31.6 HDL Cholesterol 29 L Heart Disease Risk Ratio 4.66 Urine Color Urine Appearance Urine pH Ur Specific [place] Urine Protein Urine Glucose (UA) Urine Ketones Urine Blood Urine Nitrate Urine Bilirubin Urine Urobilinogen Urine Leukocytes Urine RBC Urine WBC Ur Squamous Epith Cells Urine Mucus Ur Culture Indicated? 07/05/16 07/05/16 07/05/16 01:38 01:38 06:20 WBC RBC Hgb Hct MCV MCH MCHC RDW Plt Count MPV Neut % (Auto) Lymph % (Auto) [place] % (Auto) Eos % (Auto) Baso % (Auto) Neut # (Auto) Lymph # (Auto) [place] # (Auto) Eos # (Auto) Baso # (Auto) Immature Gran % Nucleated RBC % Immature Gran # Nucleated RBCs # Sodium Potassium Chloride Carbon Dioxide Anion Gap BUN Creatinine GFR Calculation BUN/Creatinine Ratio Glucose Hemoglobin A1c Calculated Osmolality Calcium Magnesium Total Bilirubin AST ALT Alkaline Phosphatase Total Creatine Kinase 117 D CK-MB (CK-2) 1.4 Troponin I < 0.015 B-Natriuretic Peptide 29 Total Protein Albumin Globulin Albumin/Globulin Ratio Triglycerides Cholesterol LDL Cholesterol VLDL Cholesterol HDL Cholesterol Heart Disease Risk Ratio Urine Color Yellow Urine Appearance Clear Urine pH 5.0 Ur Specific [place] 1.017 Urine Protein Negative Urine Glucose (UA) Negative Urine Ketones Negative Urine Blood Negative Urine Nitrate Negative Urine Bilirubin Negative Urine Urobilinogen < 2.0 H Urine Leukocytes Negative Urine RBC 1 Urine WBC <1 Ur Squamous Epith Cells Occasional Urine Mucus Occasional Ur Culture Indicated? Not indicated 07/05/16 08:53 WBC RBC Hgb Hct MCV MCH MCHC RDW Plt Count MPV Neut % (Auto) Lymph % (Auto) Emm[place] % (Auto) Eos % (Auto) Baso % (Auto) Neut # (Auto) Lymph # (Auto) Emmet # (Auto) Eos # (Auto) Baso # (Auto) Immature Gran % Nucleated RBC % Immature Gran # Nucleated RBCs # Sodium Potassium Chloride Carbon Dioxide Anion Gap BUN Creatinine GFR Calculation BUN/Creatinine Ratio Glucose Hemoglobin A1c Calculated Osmolality Calcium Magnesium Total Bilirubin AST ALT Alkaline Phosphatase Total Creatine Kinase 119 CK-MB (CK-2) 1.5 Troponin I < 0.015 B-Natriuretic Peptide Total Protein Albumin Globulin Albumin/Globulin Ratio Triglycerides Cholesterol LDL Cholesterol VLDL Cholesterol HDL Cholesterol Heart Disease Risk Ratio Urine Color Urine Appearance Urine pH Ur Specific [place] Urine Protein Urine Glucose (UA) Urine Ketones Urine Blood Urine Nitrate Urine Bilirubin Urine Urobilinogen Urine Leukocytes Urine RBC Urine WBC Ur Squamous Epith Cells Urine Mucus Ur Culture Indicated? Quality Measures - VTE Contraindication to Mechanical VTE Prophylaxis: Trauma to Legs
--- NOTE | 2016-07-05 13:35 | Sleep Medicine Consult ---
Assessment and Plan (1) Unspecified sleep apnea Status: Acute Assessment and plan: His history certainly is concerning for obstructive sleep apnea. With witnessed apneas and profound sleepiness, polysomnography is indicated. We will set him up for outpatient polysomnography at the next available date and follow-up with him in the sleep clinic. Thank you for this consult and the opportunity to participate in his care. Current Visit: Yes (2) Hypertensive urgency Status: Acute Assessment and plan: The prevalence rate for obstructive sleep apnea patients with hypertension is 35 %. That rate can be as high as 80% in patients who require 4 or more medications for blood pressure control. Current Visit: Yes History of Present Illness Chief complaint: Sleep apnea History of present illness: Mr. Ibarra is a 50 year old male admitted with left-sided chest pain, shortness of breath and diaphoresis. His pain did not remit with nitroglycerin. Cardiac isoenzymes were negative. [facility] developing shortness of breath with a treadmill evaluation. Cardiac cath revealed no significant coronary disease. During the course of his evaluation, it was noted that he had a history of loud snoring and witnessed apneas during sleep by his . His would elbow him to get him to turn over and start breathing. He has had significant issues with daytime fatigue and sleepiness and had an [place] sleepiness score of 21. He had an elevated stop bang score of 7 and with his health issues, sleep medicine was consulted. Home Medications Medication Instructions Recorded Confirmed Type Omeprazole 20 mg PO QAM 07/04/16 07/04/16 History Allergies Allergy/AdvReac Type Severity Reaction Status Date / Time No Known Allergies Allergy Unverified 07/04/16 08:51 Review of systems: Negative for nocturia. Usually retires about 10:30 PM and awakens at 515. Only awakens once or twice a night at the most. Exam ([place]) H&P - Constitutional Vitals: Period Temp Pulse Resp BP Sys/Romeo Pulse Ox Last 24 Hr 97.8 F-98.5 F 61-75 16-20 132-148/75-88 96-98 Exam: He is lethargic but responsive and in no acute distress. He does answer all questions appropriately and will follow commands. Pupils equal round reactive to light and accommodation. Extraocular movements intact. Oropharynx with a class IV Mallampati exam. Neck is large at 19 inches in circumference. No thyromegaly or cervical adenopathy. No supraclavicular adenopathy is noted. Chest with symmetrical breath sounds without focal wheeze, rhonchi, or rales. Cardiac exam reveals a regular rhythm without murmur or gallop. Abdomen soft nontender without palpable hepatosplenomegaly or mass. Extremities are without clubbing, cyanosis, or edema. Neurologically, he is grossly intact. Medical,Surgical,& Family Hx - Medical History Cardio: No history of: Cardiac Dysrhythmia, CHF, CAD, [place], Valvular Heart Disease Endocrine: No history of: Diabetes Mellitus (NIDDM), Dyslipidemia Gastrointestinal: History of: GERD - Surgical History Neurologic Surgeries: Patient denies: Neurologic Surgery - Family History Family History: Reports;: Family Heart Disease (father had an [place] at 60) - Social History Smoking Status: Current every day smoker Frequency of Alcohol Use: None Type of Drug Use: None Marital Status: Lives With:: Spouse Results - Labs CBC & BMP: 07/05/16 01:38 07/05/16 01:38 Lab Results: I have reviewed the past 24 hour labs Quality Measures - VTE Contraindication to Mechanical VTE Prophylaxis: Trauma to Legs Specialty Discharge - Follow Up or Referrals
--- NOTE | 2016-07-05 13:44 | Nuclear Medicine Report ---
LEXISCAN CARDIOLITE GATED SPECT PERFUSION STUDY REFERRING PHYSICIAN: Aurelio Somers DO PROCEDURE: LEXISCAN CARDIOLITE GATED SPECT PERFUSION STUDY. INITIAL IMPRESSION: 1. A 50-YEAR-OLD MAN WITH ATYPICAL CHEST PAIN. 2. ABNORMAL ELECTROCARDIOGRAM. 3. HYPERTENSION. FINAL IMPRESSION: ABNORMAL LEXISCAN CARDIOLITE STRESS TEST. I. DESCRIPTION OF PROCEDURE: The patient received 10.0 mCi of Technetium-99m, Cardiolite IV, and r est imaging was obtained in the routine manner 20 minutes later. The patient then walked for 8 destini sreekanth and 32 seconds on the standard Santiago protocol, but failed to achieve target heart rate. Peak he art rate was only 125, which is 72% of his predicted. For this reason, he was given 0.4 mg Lexiscan followed by 30.0 mCi of Technetium-99m, Cardiolite and pharmacologic stressing was obtained in the routine manner 20 minutes later. Serial electrocardiograms were performed. The initial blood press ure was 142/80, and it was 180/80 immediately post Lexiscan. II. RESULTS: The patient developed chest pain at peak exercise across his mid chest. The resting EKG demonstrated normal sinus rhythm with late transition across the precordium and ST-T-wave change s. With pharmacologic stress, no diagnostic EKG changes occurred. No arrhythmias. Tomographic imaging demonstrates homogeneous uptake of radioisotope in all segments. There is no ev idence for ischemia or scar. Gated SPECT imaging demonstrates normal wall motion and thickening in all segments. The calculated ejection fraction is 63%. III. FINAL IMPRESSION: 1. CLINICALLY SUSCIPIOUS. 2. NORMAL NUCLEAR PERFUSION IMAGING. IV. DISPOSITION: The patient developed chest pain at peak exercise but no diagnostic EKG changes a nd tomographic imaging is normal. Cardiac catheterization has been recommended to clarify his coron marcel anatomy and treatment options. He has multiple risk factors. Procedure performed and interpreted at [facility] Department of Radiology. CC: Aurelio Somers DO
[2016-07-05] MEDS: SODIUM CHLORIDE 0.45% 1,000 ML IV SCH ×2 (15:37→21:47)
[2016-07-05 17:32] LABS: Troponin I Only < 0.015 NG/ML (0.00-0.045)
[2016-07-05] MEDS: ACETAMINOPHEN 325 MG TABLET PO PRN (21:46)
[2016-07-06] MEDS: NITROGLYCERIN 2% OINT 1 INCH/GM PACK TOP SCH ×3 (01:03→09:44)
[2016-07-06] MEDS: ENOXAPARIN 100 MG/ML SYRINGE SUBCUT SCH (01:05)
[2016-07-06 04:04] LABS: Basophils % 0.5 % (0.0-0.8); Eosinophils # 0.2 10*3/uL (0.0-0.87); Eosinophils % 2.1 % (0.00-10.9); Hematocrit 46.2 VOL% (42.0-52.0); Hemoglobin 15.4 GM/DL (14.0-18.0); Immature Granulocytes % 0.2 %; Immature Granulocytes Absolute 0.02 #; Lymphocytes # 2.5 10*3/uL (1.4-4.0); Lymphocytes % 30.3 % (21.2-54.2); Mean Corpuscular HGB Conc 33.3 GM/DL (32-36); Mean Corpuscular Hemoglobin 33 PG (27-34); Mean Corpuscular Volume 98.3 FL (87-102); Mean Platelet Volume 9.6 FL (9.6-12.0); Monocytes # 0.7 10*3/uL (0.11-0.8); Monocytes % 8.7 % (1.7-12.7); Neutrophils # 4.8 10*3/uL (1.4-7.4); Neutrophils % 58.2 % (38.7-73.9); Platelet Count 151 T/CUMM (130-400); Red Cell Distribution Width 11.5 % (9.3-17.3); White Blood Count 8.2 T/CUMM (4-12)
[2016-07-06 04:23] LABS: Calcium 8.1 MG/DL (8.5-10.1); Magnesium 2.1 MG/DL (1.8-2.4); Potassium 4.2 MMOL/L (3.5-5.1)
[2016-07-06] MEDS: SODIUM CHLORIDE 0.45% 1,000 ML IV SCH (06:03)
--- NOTE | 2016-07-06 08:25 | Family Practice Progress Note ---
Family Practice - PN: Subj Interval history: Pt. seen and stable. Isos -. No further chest pain. AVSS . planning cath later today. If ok in amd antd cath normal , plan d/c Exam (Progress Note) - Constitutional Vitals: Period Temp Pulse Resp BP Sys/Romeo Pulse Ox Last 24 Hr 97.2 F-98.2 F 58-82 16-20 111-149/64-94 95-98 Exam: Generally well-developed male is alert and oriented very cognitive answers HEENT pupils equal reactive to light extraocular movements are intact neck is supple trachea midline Cardiovascular rate is regular no gallops or rubs Lungs are clear bilaterally Abdomen soft nondistended nontender positive bowel sounds Extremities no clubbing cyanosis edema Neurologically fully intact no lateralizing or motor sensory deficit Results - Labs CBC & BMP: 07/06/16 03:42 07/06/16 03:42 Assessment and Plan (1) Chest pain Status: Acute Assessment and plan: 07/04/2016: Patient has negative isoenzymes first 2 sets. Has been treated appropriately with medications for his elevated blood pressure. Will get cardiology to evaluate and appreciate their assistance in the 07/06/16: cardiolgy eval. further today Current Visit: Yes (2) Hypertensive urgency Status: Acute Assessment and plan: 07/04/2016: Stable at this time blood pressure is down and will continue treating as necessary Current Visit: Yes (3) GERD (gastroesophageal reflux disease) Status: Chronic Assessment and plan: 07/04/2016: Has no complaints of gastroesophageal reflux this time we will continue to monitor and keep on PPI Current Visit: Yes (4) Tobacco abuse Status: Chronic Assessment and plan: 07/04/2016: We will strongly encourage patient not to use tobacco anymore. May require some tobacco cessation medicines Current Visit: Yes Quality Measures - VTE Contraindication to Mechanical VTE Prophylaxis: Trauma to Legs Specialty Discharge - Follow Up or Referrals
--- NOTE | 2016-07-06 08:33 | Discharge Summary ---
Hospital Course - Hospital Course Hospital Course: 50 y/o male presented to the ED with symptoms of CP and SOB, negative Enzymes and HTN. Secondary to patient Cardiac HX Cardiology was consulted and subsequently had a heart cath which was negative. He has been started on Metoprolol Succinate 25mg daily and we will continue his Omeprazole at this time. AMARILIS was also an issue with patient ans a Pulmonary consult with outpatient sleep study is set up. He is ok for d/c per Cardiology note from 01/2017, therefore we will discharge him this morning with office folow up in one month. Diagnosis - Discharge Diagnosis (1) Chest pain Status: Acute (2) Hypertensive urgency Status: Acute (3) GERD (gastroesophageal reflux disease) Status: Chronic (4) Tobacco abuse Status: Chronic Specialty Discharge - Follow Up or Referrals Discharge Plan - Discharge Data Disposition: Disch To Home/Self Care Condition at Discharge: Stable Discharge Diet: heart healthy Activity: as per the cardiac rehab, increase activity as tolerated Hygiene: no restrictions Weight Bearing at Discharge: full weight bearing Driving: no restrictions Contact your physician if you experience:: Redness or swelling, Shortness of breath - Discharge Medications New Aspirin EC Tab 81 mg PO DAILY tablet Metoprolol Succinate Xl [Toprol Xl] 25 mg PO DAILY #30 tablet Continue Omeprazole 20 mg PO QAM - Follow Up or Referral Follow Up: Aurelio Somers DO [Physician] - 1 Month Vamsi Rojas MD [Physician] - (per Cardiology instructions) - Forms/Instructions Instructions: Coronary Artery Disease (GEN), Left Heart Catheterization (DC), Heart Healthy Diet (GEN), Cigarette Smoking and Your Health (GEN) Exam - Constitutional Vitals: Period Temp Pulse Resp BP Sys/Romeo Pulse Ox Last 24 Hr 97.2 F-98.2 F 58-82 16-20 111-149/64-94 95-98 Discharge Results Procedures and tests throughout hospitalization: Pending Orders 07/05/16 11:46 CL heart Routine Labs on day of discharge: Labs from last 24 hours 07/06/16 07/06/16 07/05/16 03:42 03:42 16:56 WBC 8.2 RBC 4.70 Hgb 15.4 Hct 46.2 MCV 98.3 MCH 33 MCHC 33.3 RDW 11.5 Plt Count 151 MPV 9.6 Neut % (Auto) 58.2 Lymph % (Auto) 30.3 [place] % (Auto) 8.7 Eos % (Auto) 2.1 Baso % (Auto) 0.5 Neut # (Auto) 4.8 Lymph # (Auto) 2.5 [place] # (Auto) 0.7 Eos # (Auto) 0.2 Baso # (Auto) 0.0 Immature Gran % 0.2 Nucleated RBC % 0.0 Immature Gran # 0.02 Nucleated RBCs # 0.00 Sodium 143 Potassium 4.2 Chloride 108 H Carbon Dioxide 25 Anion Gap 14.2 BUN 14 Creatinine 0.90 GFR Calculation 113 BUN/Creatinine Ratio 15.00 Glucose 92 Calculated Osmolality 285.0 Calcium 8.1 L Magnesium 2.1 Total Creatine Kinase 105 CK-MB (CK-2) 1.2 Troponin I < 0.015 07/05/16 08:53 WBC RBC Hgb Hct MCV MCH MCHC RDW Plt Count MPV Neut % (Auto) Lymph % (Auto) [place] % (Auto) Eos % (Auto) Baso % (Auto) Neut # (Auto) Lymph # (Auto) [place] # (Auto) Eos # (Auto) Baso # (Auto) Immature Gran % Nucleated RBC % Immature Gran # Nucleated RBCs # Sodium Potassium Chloride Carbon Dioxide Anion Gap BUN Creatinine GFR Calculation BUN/Creatinine Ratio Glucose Calculated Osmolality Calcium Magnesium Total Creatine Kinase 119 CK-MB (CK-2) 1.5 Troponin I < 0.015 DS: Provider Date of admission: 07/04/16 10:26 Primary care physician: . 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
[2016-07-06 08:37] VITALS: BP 181/101
[2016-07-06] MEDS ORDERED: METOPROLOL SUCCINATE XL 25 MG TABLET PO SCH (09:00)
[2016-07-06] MEDS ORDERED: ASPIRIN EC 81 MG TABLET PO SCH (09:00)
[2016-07-06] MEDS: PANTOPRAZOLE 40 MG VIAL IV SCH (09:41)
[2016-07-06] MEDS: DOCUSATE SODIUM 100 MG CAPSULE PO SCH (09:41)
[2016-07-06] MEDS: SODIUM CHLORIDE 0.9% 1,000 ML IV SCH (09:43)
--- NOTE | 2016-07-06 11:12 | Cardiology Progress Note ---
Assessment and Plan (1) GERD (gastroesophageal reflux disease) Status: Chronic Current Visit: Yes (2) Tobacco abuse Status: Chronic Current Visit: Yes (3) Family history of heart disease Status: Chronic Current Visit: Yes (4) Dizziness Status: Acute Current Visit: Yes (5) Chest pain Status: Acute Current Visit: Yes (6) Hypertensive urgency Status: Acute Current Visit: Yes Cardiology - PN: Subj Interval history: Cardiology note Cardiac cath demonstrated widely patent coronaries and ejection fraction 60%. Noncardiac chest pain. Patient and Alessia reassured. Telemetry benign. Right groin soft and dry. No bruit or hematoma. Blood pressure 150/86 in the right arm by me Plan Home today. Begin lisinopril 10 mg daily. Prescription given to patient. Routine groin precautions discussed. Office visit in 2 weeks with EKG Exam (Progress Note) - Constitutional Vitals: Period Temp Pulse Resp BP Sys/Romeo Pulse Ox Last 24 Hr 97.2 F-98.4 F 58-82 16-20 111-181/64-101 95-98 Result/EKG - Labs CBC & BMP: 07/06/16 03:42 07/06/16 03:42 Labs: Laboratory Results - last 24 hr 07/05/16 07/06/16 07/06/16 16:56 03:42 03:42 WBC 8.2 RBC 4.70 Hgb 15.4 Hct 46.2 MCV 98.3 MCH 33 MCHC 33.3 RDW 11.5 Plt Count 151 MPV 9.6 Neut % (Auto) 58.2 Lymph % (Auto) 30.3 [place] % (Auto) 8.7 Eos % (Auto) 2.1 Baso % (Auto) 0.5 Neut # (Auto) 4.8 Lymph # (Auto) 2.5 [place] # (Auto) 0.7 Eos # (Auto) 0.2 Baso # (Auto) 0.0 Immature Gran % 0.2 Nucleated RBC % 0.0 Immature Gran # 0.02 Nucleated RBCs # 0.00 Sodium 143 Potassium 4.2 Chloride 108 H Carbon Dioxide 25 Anion Gap 14.2 BUN 14 Creatinine 0.90 GFR Calculation 113 BUN/Creatinine Ratio 15.00 Glucose 92 Calculated Osmolality 285.0 Calcium 8.1 L Magnesium 2.1 Total Creatine Kinase 105 CK-MB (CK-2) 1.2 Troponin I < 0.015 Quality Measures - VTE Contraindication to Mechanical VTE Prophylaxis: Trauma to Legs Specialty Discharge - Follow Up or Referrals Follow up with: Aurelio Somers DO [Physician] - 1 Month Vamsi Rojas MD [Physician] - (per Cardiology instructions)
== END 2016-07-06 12:13 | disposition home or self-care (01) | DRG 287 ==
LOC: N.ED 08:48 → N.EDINP 10:26 → N.TELEN 12:55
PROVIDERS: ADMIT Family Medicine; ATTEND Family Medicine
PROC: CLCCHCL (ICD-10-PCS; 2016-07-05 12:15)